=== PATIENT | male | born 1960 | race Caucasian/White ===

== ENCOUNTER 2021-11-04 08:09 | Outpatient (CLI) | payer OTHER, SELFPAY ==
[2021-11-04 13:40] LABS: Chloride* 103 mmol/L (96-114); Potassium* 4.8 mmol/L (3.6-5.1); Sodium* 139 mmol/L (135-149)
[2021-11-04 13:43] LABS: Blood Urea Nitrogen* 25 mg/dL (7-30); Carbon Dioxide* 31 mmol/L (20-32); Cholesterol* 147 mg/dL (90-199); Creatinine* 1.6 mg/dL (0.5-1.5); Estimated Glomerular Filt Rate 48 ml/min; Glucose* 101 mg/dL (60-115); Triglycerides* 122 mg/dL (40-149)
[2021-11-04 13:44] LABS: Calcium* 9.3 mg/dL (8.4-10.6); HDL Cholesterol* 57 mg/dL (>=40); LDL Cholesterol Calculated 66 mg/dL (<100)
[2021-11-04 14:15] LABS: PSA Screen* 1.33 ng/mL (0.10-4.00)
== END 2021-11-04 08:10 | disposition home or self-care (01) ==
PROVIDERS: PCP Family Medicine; Visit Provider Family Medicine
DX: Z00.00 Encounter for general adult medical examination without abnormal findings (principal); I10 Essential (primary) hypertension; E78.00 Pure hypercholesterolemia, unspecified; N28.9 Disorder of kidney and ureter, unspecified; Z12.5 Encounter for screening for malignant neoplasm of prostate
CPT/HCPCS: 80048; 80061; 84153

== ENCOUNTER 2021-12-01 16:43 | Outpatient (CLI) | payer OTHER, SELFPAY | END 2021-12-01 16:44 | disposition home or self-care (01) | PROVIDERS: PCP Family Medicine; Visit Provider Family Medicine | DX: I10 Essential (primary) hypertension (principal) | CPT/HCPCS: 80048 ==

== ENCOUNTER 2021-12-03 16:43 | Outpatient (CLI) | payer OTHER, SELFPAY | END 2021-12-03 16:44 | disposition home or self-care (01) | PROVIDERS: PCP Family Medicine; Visit Provider Family Medicine | DX: Z00.00 Encounter for general adult medical examination without abnormal findings (principal); I10 Essential (primary) hypertension; E78.00 Pure hypercholesterolemia, unspecified; N28.9 Disorder of kidney and ureter, unspecified | CPT/HCPCS: 80048; 84156 ==

== ENCOUNTER 2021-12-07 14:25 | Outpatient (CLI) | payer OTHER, SELFPAY ==
[2021-12-07 17:56] LABS: Creatinine Urine 171.7 mg/dL
[2021-12-07 18:01] LABS: Microalbumin Creatinine Ratio 0 mg/g (0-30); Microalbumin Urine 1 mg/dL
[2021-12-07 18:07] LABS: C Reactive Protein* < 0.5 mg/dL (0.5-1.0)
[2021-12-07 18:32] LABS: Hepatitis B Surface Antigen* Negative (Negative)
[2021-12-07 18:37] LABS: HIV 1/2/P24 Combo Screen* Negative (Negative)
[2021-12-07 18:49] LABS: Hepatitis C Virus Antibody* Negative (Negative)
[2021-12-09 17:08] LABS: Complement Component 3 137 mg/dL (90-180); Complement Component 4 30 mg/dL (10-40)
[2021-12-09 21:34] LABS: Kappa Qnt Free Light Chains 17.23 mg/L (3.30-19.40); Kappa-Lambda Qt FLC W/ Ratio 0.98 (0.26-1.65); Lambda Qnt Free Light Chains 17.59 mg/L (5.71-26.30)
[2021-12-11 16:44] LABS: Albumin 4.02 g/dL (3.75-5.01); Alpha 1 Globulin 0.34 g/dL (0.19-0.46); Alpha 2 Globulin 0.76 g/dL (0.48-1.05)
[2021-12-12 20:10] LABS: ANCA IFA Pattern None Detected (None Detected); ANCA IFA Titer <1:20 (<1:20); Myeloperoxidase (MPO) Ab, IgG 0 AU/mL (0-19); Serine Proteinase 3 Ab IgG 0 AU/mL (0-19)
== END 2021-12-07 14:26 | disposition home or self-care (01) ==
PROVIDERS: PCP Family Medicine; Visit Provider Internal Medicine Nephrology
DX: I10 Essential (primary) hypertension (principal); N28.9 Disorder of kidney and ureter, unspecified; R80.9 Proteinuria, unspecified
CPT/HCPCS: 82043; 82570; 82595; 83516; 83520; 84165; 86140; 86160; 86225; 86255; 86703; 86803; 87340

== ENCOUNTER 2022-01-14 09:00 | Outpatient (RCR) | payer OTHER, SELFPAY | END 2022-01-14 11:06 | disposition home or self-care (01) | PROVIDERS: PCP Family Medicine; Visit Provider Family Medicine | DX: M75.41 Impingement syndrome of right shoulder (principal); Z51.89 Encounter for other specified aftercare | CPT/HCPCS: 97110; 97140; 97162 ==

== ENCOUNTER 2022-03-31 09:26 | Outpatient (CLI) | payer OTHER, SELFPAY ==
[2022-03-31 12:51] LABS: Chloride* 103 mmol/L (96-114)
[2022-03-31 12:52] LABS: Albumin* 4.2 g/dL (3.3-5.0); Potassium* 4.1 mmol/L (3.6-5.1); Sodium* 139 mmol/L (135-149)
[2022-03-31 12:54] LABS: Creatinine* 1.5 mg/dL (0.5-1.5); Estimated Glomerular Filt Rate 52 ml/min
[2022-03-31 12:55] LABS: Blood Urea Nitrogen* 18 mg/dL (7-30); Calcium* 9.4 mg/dL (8.4-10.6); Carbon Dioxide* 30 mmol/L (20-32); Glucose* 118 mg/dL (60-115); Phosphorus* 2.7 mg/dL (2.5-4.5)
[2022-03-31 13:12] LABS: Creatinine Urine 48.4 mg/dL
[2022-03-31 13:15] LABS: Microalbumin Creatinine Ratio 20 mg/g (0-30); Microalbumin Urine 1 mg/dL
== END 2022-03-31 09:27 | disposition home or self-care (01) ==
LOC: NFLDREF 09:26
PROVIDERS: PCP Family Medicine; Visit Provider Internal Medicine Nephrology
DX: N28.9 Disorder of kidney and ureter, unspecified (principal); R80.9 Proteinuria, unspecified; I10 Essential (primary) hypertension
CPT/HCPCS: 80069; 82043; 82570; 87086

== ENCOUNTER 2022-04-11 15:02 | Outpatient (CLI) | payer OTHER, SELFPAY ==
[2022-04-11 10:26] LABS: Total Protein Urine 7 mg/dL
[2022-04-11 10:27] LABS: Creatinine Urine 93.7 mg/dL
[2022-04-11 16:49] LABS: Collection Time Urine 24 Hours; Total Protein 24 Hour Urine 105 mg/dL; Total Volume 24 Hour Urine 1500 ml; Urine Creatinine mg/24 Hour 0 mg/Day
== END 2022-04-11 15:03 | disposition home or self-care (01) ==
PROVIDERS: PCP Family Medicine; Visit Provider Internal Medicine Nephrology
DX: I10 Essential (primary) hypertension (principal); N28.9 Disorder of kidney and ureter, unspecified; R80.9 Proteinuria, unspecified
CPT/HCPCS: 82570; 84156

== ENCOUNTER 2022-09-23 10:04 | Outpatient (CLI) | payer OTHER, SELFPAY | END 2022-09-23 10:05 | disposition home or self-care (01) | LOC: NFLDREF 09-25 06:53 | PROVIDERS: PCP Family Medicine; Referring Provider Family Medicine; Visit Provider Internal Medicine Nephrology | DX: E78.00 Pure hypercholesterolemia, unspecified (principal); I10 Essential (primary) hypertension; N28.9 Disorder of kidney and ureter, unspecified; R80.9 Proteinuria, unspecified | CPT/HCPCS: 82570; 84156 ==

== ENCOUNTER 2022-09-30 09:15 | Outpatient (CLI) | payer OTHER, SELFPAY | END 2022-09-30 09:16 | disposition home or self-care (01) | LOC: NFLDREF 10-01 09:47 | PROVIDERS: PCP Family Medicine; Referring Provider Family Medicine; Visit Provider Family Medicine | DX: E78.00 Pure hypercholesterolemia, unspecified (principal); I10 Essential (primary) hypertension; N28.9 Disorder of kidney and ureter, unspecified; R80.9 Proteinuria, unspecified | CPT/HCPCS: 80061; 80069; 82043; 82310; 82570; 83970; 84153; 84450; 84460; 84550; 86140 ==

== ENCOUNTER 2022-11-11 14:30 | Outpatient (RCR) | payer OTHER, SELFPAY | END 2023-01-13 08:47 | disposition home or self-care (01) | PROVIDERS: PCP Family Medicine; Visit Provider Family Medicine | DX: M54.50 Low back pain, unspecified (principal); M62.838 Other muscle spasm; M53.3 Sacrococcygeal disorders, not elsewhere classified; Z51.89 Encounter for other specified aftercare | CPT/HCPCS: 97110; 97140; 97161 ==

== ENCOUNTER 2023-01-18 09:25 | Outpatient (CLI) | payer OTHER, SELFPAY | END 2023-01-18 09:26 | disposition home or self-care (01) | LOC: NFLDREF 20:49 | PROVIDERS: PCP Family Medicine; Referring Provider Family Medicine; Visit Provider Internal Medicine Nephrology | DX: E78.00 Pure hypercholesterolemia, unspecified (principal); I10 Essential (primary) hypertension; N28.9 Disorder of kidney and ureter, unspecified; R80.9 Proteinuria, unspecified | CPT/HCPCS: 80061; 80069; 82043; 82310; 82570; 83970; 84450; 84460; 84550; 86140 ==

== ENCOUNTER 2023-01-19 10:00 | Outpatient (CLI) | payer OTHER, SELFPAY | END 2023-01-19 10:01 | disposition home or self-care (01) | LOC: NFLDREF 01-23 06:40 | PROVIDERS: PCP Family Medicine; Referring Provider Family Medicine; Visit Provider Family Medicine | DX: E78.00 Pure hypercholesterolemia, unspecified (principal); I10 Essential (primary) hypertension; N28.9 Disorder of kidney and ureter, unspecified; R80.9 Proteinuria, unspecified | CPT/HCPCS: 82570; 84156 ==

== ENCOUNTER 2023-05-02 15:15 | Outpatient (RCR) | payer OTHER, SELFPAY | END 2023-05-16 10:10 | disposition home or self-care (01) | PROVIDERS: PCP Family Medicine; Visit Provider Family Medicine | DX: M25.811 Other specified joint disorders, right shoulder (principal); M25.812 Other specified joint disorders, left shoulder; M25.512 Pain in left shoulder; M25.511 Pain in right shoulder; Z51.89 Encounter for other specified aftercare | CPT/HCPCS: 97110; 97140; 97161 ==

== ENCOUNTER 2023-08-01 08:40 | Outpatient (CLI) | payer OTHER, SELFPAY | END 2023-08-01 08:41 | disposition home or self-care (01) | LOC: NFLDREF 08-03 09:15 | PROVIDERS: PCP Family Medicine; Referring Provider Family Medicine; Visit Provider Internal Medicine Nephrology | DX: E78.00 Pure hypercholesterolemia, unspecified (principal); I10 Essential (primary) hypertension; N28.9 Disorder of kidney and ureter, unspecified; R80.9 Proteinuria, unspecified | CPT/HCPCS: 80061; 80069; 82043; 82570; 82728; 83540; 83550; 84450; 84460; 84550; 86140 ==

== ENCOUNTER 2023-08-03 07:00 | Outpatient (CLI) | payer OTHER, SELFPAY | END 2023-08-03 07:01 | disposition home or self-care (01) | LOC: NFLDREF 08-04 12:31 | PROVIDERS: PCP Family Medicine; Referring Provider Family Medicine; Visit Provider Internal Medicine Nephrology | DX: E78.00 Pure hypercholesterolemia, unspecified (principal); I10 Essential (primary) hypertension; N28.9 Disorder of kidney and ureter, unspecified; R80.9 Proteinuria, unspecified | CPT/HCPCS: 82570; 84156 ==

== ENCOUNTER 2023-08-07 15:26 | Outpatient (CLI) | payer OTHER, SELFPAY | END 2023-08-07 15:27 | disposition home or self-care (01) | LOC: NFLDREF 08-25 10:09 | PROVIDERS: PCP Family Medicine; Referring Provider Family Medicine; Visit Provider Internal Medicine Nephrology | DX: R80.9 Proteinuria, unspecified (principal); N18.9 Chronic kidney disease, unspecified | CPT/HCPCS: 83970 ==

== ENCOUNTER 2023-12-28 08:57 | Outpatient (CLI) | payer OTHER, SELFPAY | END 2023-12-28 08:58 | disposition home or self-care (01) | LOC: NFLDREF 12-29 08:38 | PROVIDERS: PCP Family Medicine; Referring Provider Family Medicine; Visit Provider Family Medicine | DX: E78.00 Pure hypercholesterolemia, unspecified (principal); I10 Essential (primary) hypertension; Z12.5 Encounter for screening for malignant neoplasm of prostate | CPT/HCPCS: 80053; 80061; 80069; 82043; 82248; 82570; 82728; 83540; 83550; 83970; 84550; G0103 ==

== ENCOUNTER 2024-02-01 09:37 | Outpatient (CLI) | payer OTHER, SELFPAY | END 2024-02-01 09:38 | disposition home or self-care (01) | LOC: NFLDREF 02-06 13:25 | PROVIDERS: PCP Family Medicine; Referring Provider Family Medicine; Visit Provider Internal Medicine Nephrology | DX: I12.9 Hypertensive chronic kidney disease with stage 1 through stage 4 chronic kidney disease, or unspecified chronic kidney disease (principal); N18.31 Chronic kidney disease, stage 3a; R80.9 Proteinuria, unspecified; R53.83 Other fatigue; Z13.0 Encounter for screening for diseases of the blood and blood-forming organs and certain disorders involving the immune mechanism | CPT/HCPCS: 80069; 82043; 82570; 82728; 83540; 83550; 83970; 84156; 84550 ==

== ENCOUNTER 2024-08-20 08:35 | Outpatient (CLI) | payer BC, SELFPAY | END 2024-08-20 08:36 | disposition home or self-care (01) | LOC: NFLDREF 08-22 12:51 | PROVIDERS: PCP Family Medicine; Referring Provider Family Medicine; Visit Provider Internal Medicine Nephrology | DX: N18.30 Chronic kidney disease, stage 3 unspecified (principal); I10 Essential (primary) hypertension; R80.9 Proteinuria, unspecified; N28.9 Disorder of kidney and ureter, unspecified | CPT/HCPCS: 80069; 82043; 82570; 83970; 84075; 84550; 87086 ==

== ENCOUNTER 2024-08-22 09:23 | Outpatient (CLI) | payer BC, SELFPAY | END 2024-08-22 09:24 | disposition home or self-care (01) | LOC: NFLDREF 08-24 04:38 | PROVIDERS: PCP Family Medicine; Referring Provider Family Medicine; Visit Provider Internal Medicine Nephrology | DX: N18.30 Chronic kidney disease, stage 3 unspecified (principal); I12.9 Hypertensive chronic kidney disease with stage 1 through stage 4 chronic kidney disease, or unspecified chronic kidney disease | CPT/HCPCS: 82570; 84156 ==

== ENCOUNTER 2024-11-28 09:09 | Outpatient (CLI) | payer BC, SELFPAY | END 2024-11-28 09:10 | disposition home or self-care (01) | LOC: NFLDREF 12-03 07:01 | PROVIDERS: PCP Family Medicine; Referring Provider Family Medicine; Visit Provider Family Medicine | DX: Z12.5 Encounter for screening for malignant neoplasm of prostate; Z13.6 Encounter for screening for cardiovascular disorders | CPT/HCPCS: 80053; 80061; G0103 ==

== ENCOUNTER 2025-02-27 08:36 | Outpatient (CLI) | payer BC, SELFPAY | END 2025-02-27 08:37 | disposition home or self-care (01) | LOC: NFLDREF 03-05 01:51 | PROVIDERS: PCP Family Medicine; Referring Provider Family Medicine; Visit Provider Internal Medicine Nephrology | DX: N18.30 Chronic kidney disease, stage 3 unspecified (principal); E21.3 Hyperparathyroidism, unspecified; E78.00 Pure hypercholesterolemia, unspecified | CPT/HCPCS: 80061; 80069; 80076; 82043; 82306; 82570; 83970; 84550 ==

== ENCOUNTER 2025-03-03 10:03 | Outpatient (CLI) | payer BC, SELFPAY | END 2025-03-03 10:04 | disposition home or self-care (01) | LOC: NFLDREF 10:03 | PROVIDERS: PCP Family Medicine; Visit Provider Internal Medicine Nephrology | DX: I10 Essential (primary) hypertension (principal); N28.9 Disorder of kidney and ureter, unspecified; R80.9 Proteinuria, unspecified | CPT/HCPCS: 82570; 84156 ==